=== PATIENT | female | born 1950 | race Native Hawaiian/Other Pacific Islander ===

== ENCOUNTER 2017-04-26 11:27 | Outpatient (CLI) | payer OTHER | END 2017-04-26 19:11 | disposition home or self-care (01) | LOC: RAD 11:27 | DX: R05 Cough (principal) ==

== ENCOUNTER 2017-05-13 12:06 | Observation (INO) | payer OTHER ==
[~2017-05-13] VITALS: Ht 172.7 cm; Wt 117.9 kg
[2017-05-13 15:09] VITALS: BP 173/76; TEMP 98.9; Ht 172.7 cm; Wt 117.9 kg
[2017-05-13 15:15] LABS: PLATELET COUNT 395 K/uL (152-353)
[2017-05-13 15:31] LABS: POTASSIUM 3.7 mmol/L (3.6-5.2); SODIUM 139 mmol/L (136-145)
[2017-05-13] MEDS ORDERED: FLECAINIDE100 MG PO (18:50)
[2017-05-13] MEDS ORDERED: LOSA50TA PO (18:50)
[2017-05-13] MEDS ORDERED: LORADAMED10 MG PO (18:51)
[2017-05-13] MEDS ORDERED: SERT50TA PO (18:51)
[2017-05-13] MEDS ORDERED: KLOR-CON M1010 MEQ PO (18:51)
[2017-05-13] MEDS ORDERED: ROBAXIN-750750 MG PO (18:52)
[2017-05-13] MEDS ORDERED: TESSALON PER100 MG OR (18:54)
[2017-05-13] MEDS ORDERED: ALBUTEROL0.083 % IN (18:55)
[2017-05-13] MEDS ORDERED: BETAMETH DIP0.052 TOP (18:56)
[2017-05-13] MEDS ORDERED: LEVAQUIN500 MG OR (18:59)
[2017-05-13] MEDS ORDERED: PROMSYP53 PO (19:01)
[2017-05-13 20:00] VITALS: BP 175/90; TEMP 98.4
[2017-05-14] VITALS: BP 173/86; TEMP 98.7
[2017-05-14 04:00] VITALS: BP 168/81; TEMP 97.6
[2017-05-14 05:07] LABS: PLATELET COUNT 375 K/uL (152-353)
[2017-05-14 05:14] LABS: POTASSIUM 3.6 mmol/L (3.6-5.2); SODIUM 139 mmol/L (136-145)
[2017-05-14 08:00] VITALS: BP 149/79; TEMP 98.3
[2017-05-14 12:00] VITALS: BP 141/75; TEMP 97.8
[2017-05-14 16:00] VITALS: BP 149/76; TEMP 98.3
[2017-05-14 20:00] VITALS: BP 158/87; TEMP 98
[2017-05-15 00:26] VITALS: BP 138/58; TEMP 98
[2017-05-15 04:00] VITALS: BP 140/71; TEMP 98
[2017-05-15 07:54] LABS: PLATELET COUNT 399 K/uL (152-353)
[2017-05-15 08:00] VITALS: BP 152/79; TEMP 97.7
[2017-05-15 08:25] LABS: POTASSIUM 3.6 mmol/L (3.6-5.2); SODIUM 139 mmol/L (136-145)
[2017-05-15 12:00] VITALS: BP 128/55; TEMP 97.7
--- NOTE | 2017-05-15 15:29 | NUR ---
DC INSTRUCTIONS GIVEN TO PT AND FAMILY. RX GIVEN TO PT. INSTRUCTED PT TO FOLLOW UP WITH PCP IN 3-5 DAYS. PT VERBALIZED UNDERSTANDING. IV DC'D WITH CANNULA INTACT, SITE CARE PROVIDED. NAD NOTED.
--- NOTE | 2017-05-15 15:38 | NUR ---
PT LEFT VIA WC AT THIS TIME
== END 2017-05-15 15:30 | disposition home or self-care (01) ==
LOC: MED/SURG 12:06
PROVIDERS: Internal Medicine; ADMIT Nurse Practitioner
DX: J06.9 Acute upper respiratory infection, unspecified (principal); R06.02 Shortness of breath
CPT/HCPCS: 36415; 36600; 80048; 80053; 82805; 85027; 87040; 93005; 94640; 94664; 94760; 96365; 96366; 96367; 96374; 99220; G0378; G0379; J2920; J2930

== ENCOUNTER 2017-06-17 19:11 | Emergency (ER) | payer OTHER ==
[~2017-06-17] VITALS: Ht 172.7 cm; Wt 122.5 kg
[~2017-06-17 19:11] MED LIST: ALBUTEROL0.083 % IN; BETAMETH DIP0.052 TOP; FLECAINIDE100 MG PO; KLOR-CON M1010 MEQ PO; LEVAQUIN500 MG OR; LORADAMED10 MG PO; LOSA50TA PO; PROMSYP53 PO; ROBAXIN-750750 MG PO; SERT50TA PO; TESSALON PER100 MG OR
[2017-06-17 21:30] VITALS: BP 168/88; TEMP 98.9
== END 2017-06-17 21:31 | disposition home or self-care (01) ==
LOC: ED 19:11
DX: R21 Rash and other nonspecific skin eruption (principal); L03.116 Cellulitis of left lower limb; L03.115 Cellulitis of right lower limb
CPT/HCPCS: 99283

== ENCOUNTER 2017-07-14 09:42 | Outpatient (CLI) | payer OTHER | END 2017-07-14 10:45 | disposition home or self-care (01) | LOC: LABW 09:42 | PROVIDERS: Internal Medicine Cardiovascular Disease | DX: E78.4 Other hyperlipidemia (principal) | CPT/HCPCS: 36415; 80061 ==

== ENCOUNTER 2017-08-10 13:08 | Outpatient (CLI) | payer OTHER | END 2017-08-10 14:10 | disposition home or self-care (01) | LOC: RESP 13:08 | DX: R06.09 Other forms of dyspnea (principal) | CPT/HCPCS: 94640; 94664 ==

== ENCOUNTER 2018-01-24 11:25 | Outpatient (CLI) | payer OTHER | END 2018-01-24 18:18 | disposition home or self-care (01) | LOC: MAMMO 11:25 | DX: Z85.3 Personal history of malignant neoplasm of breast (principal); Z90.11 Acquired absence of right breast and nipple; N64.4 Mastodynia ==

== ENCOUNTER 2018-02-02 14:15 | Outpatient (CLI) | payer OTHER | END 2018-02-02 19:25 | disposition home or self-care (01) | LOC: LABW 14:15 | DX: K64.0 First degree hemorrhoids (principal) | CPT/HCPCS: 82272 ==

== ENCOUNTER 2018-02-18 15:25 | Emergency (ER) | payer OTHER ==
[~2018-02-18] VITALS: Ht 172.7 cm; Wt 120.2 kg
[2018-02-18 15:35] VITALS: TEMP 98.8
[2018-02-18 17:00] VITALS: BP 142/82
== END 2018-02-18 17:00 | disposition home or self-care (01) ==
LOC: ED 15:25
DX: S62.396A Other fracture of fifth metacarpal bone, right hand, initial encounter for closed fracture (principal); S63.591A Other specified sprain of right wrist, initial encounter; W20.8XXA Other cause of strike by thrown, projected or falling object, initial encounter; Y92.098 Other place in other non-institutional residence as the place of occurrence of the external cause
CPT/HCPCS: 99283

== ENCOUNTER 2018-08-16 11:27 | Outpatient (CLI) | payer OTHER | END 2018-08-16 21:01 | disposition home or self-care (01) | LOC: MRI 11:27 | DX: M54.5 Low back pain (principal) ==

== ENCOUNTER 2019-02-28 09:53 | Outpatient (CLI) | payer OTHER | END 2019-02-28 20:40 | disposition home or self-care (01) | LOC: MAMMO 09:53 | DX: Z90.11 Acquired absence of right breast and nipple (principal); Z85.3 Personal history of malignant neoplasm of breast ==

== ENCOUNTER 2019-04-03 14:24 | Outpatient (CLI) | payer OTHER | END 2019-04-03 21:19 | disposition home or self-care (01) | LOC: RAD 14:24 | DX: R06.09 Other forms of dyspnea (principal) ==

== ENCOUNTER 2019-09-24 09:54 | Outpatient (CLI) | payer OTHER | END 2019-09-24 19:14 | disposition home or self-care (01) | LOC: RESP 09:54 | DX: R06.09 Other forms of dyspnea (principal) ==

== ENCOUNTER 2019-11-05 09:51 | Outpatient (CLI) | payer OTHER | END 2019-11-05 23:07 | disposition home or self-care (01) | LOC: EDBD 09:51 → LABW 09:51 | DX: I48.91 Unspecified atrial fibrillation (principal); R06.02 Shortness of breath | CPT/HCPCS: 36415; 83880 ==

== ENCOUNTER 2020-02-13 08:09 | Outpatient (CLI) | payer OTHER ==
[~2020-02-13] VITALS: Ht 175.3 cm; Wt 121.6 kg
== END 2020-02-13 19:22 | disposition home or self-care (01) ==
LOC: NM 08:09
DX: R07.89 Other chest pain (principal)
CPT/HCPCS: A9500; J2785

== ENCOUNTER 2020-08-17 16:08 | Emergency (ER) | payer OTHER ==
[~2020-08-17] VITALS: Ht 172.7 cm; Wt 121.6 kg
[2020-08-17 16:20] VITALS: TEMP 98
[2020-08-17 18:17] VITALS: BP 188/82
== END 2020-08-17 18:17 | disposition home or self-care (01) ==
LOC: ED 16:08
DX: S06.0X0A Concussion without loss of consciousness, initial encounter (principal); W01.198A Fall on same level from slipping, tripping and stumbling with subsequent striking against other object, initial encounter; Y92.098 Other place in other non-institutional residence as the place of occurrence of the external cause
CPT/HCPCS: 99283

== ENCOUNTER 2020-10-10 08:54 | Outpatient (CLI) | payer OTHER | END 2020-10-10 19:28 | disposition home or self-care (01) | LOC: LABW 08:54 | PROVIDERS: ATTEND Internal Medicine Cardiovascular Disease | DX: Z79.899 Other long term (current) drug therapy (principal); R06.09 Other forms of dyspnea | CPT/HCPCS: 36415; 80048; 80061; 82306; 82607; 83880 ==

== ENCOUNTER 2020-11-19 13:56 | Outpatient (CLI) | payer OTHER | END 2020-11-19 20:26 | disposition home or self-care (01) | LOC: MAMMO 13:56 | PROVIDERS: ATTEND Nurse Practitioner | DX: N64.4 Mastodynia (principal) | CPT/HCPCS: G0279 ==

== ENCOUNTER 2021-02-02 09:27 | Outpatient (CLI) | payer OTHER | END 2021-02-02 22:11 | disposition home or self-care (01) | LOC: LABW 09:27 | PROVIDERS: ATTEND Internal Medicine Cardiovascular Disease | DX: E78.49 Other hyperlipidemia (principal) | CPT/HCPCS: 36415; 80061 ==

== ENCOUNTER 2021-07-02 09:25 | Outpatient (CLI) | payer OTHER ==
[2021-07-02 09:55] LABS: POTASSIUM 3.6 mmol/L (3.6-5.2)
[2021-07-02 10:18] LABS: PLATELET COUNT 301 K/uL (152-353)
== END 2021-07-02 22:35 | disposition home or self-care (01) ==
LOC: LABW 09:25
PROVIDERS: ATTEND Internal Medicine Cardiovascular Disease
DX: Z79.899 Other long term (current) drug therapy (principal)
CPT/HCPCS: 36415; 80053; 80061; 85027

== ENCOUNTER 2021-11-23 11:36 | Outpatient (CLI) | payer OTHER | END 2021-11-23 18:53 | disposition home or self-care (01) | LOC: MAMMO 11:36 | PROVIDERS: ATTEND Registered Nurse | DX: Z12.31 Encounter for screening mammogram for malignant neoplasm of breast (principal); N64.59 Other signs and symptoms in breast ==

== ENCOUNTER 2021-11-26 12:07 | Outpatient (CLI) | payer OTHER | END 2021-11-26 19:15 | disposition home or self-care (01) | LOC: RAD 12:07 | PROVIDERS: ATTEND Registered Nurse | DX: R09.89 Other specified symptoms and signs involving the circulatory and respiratory systems (principal) ==

== ENCOUNTER 2021-12-28 14:20 | Outpatient (CLI) | payer OTHER | END 2021-12-28 19:04 | disposition home or self-care (01) | LOC: MRI 14:20 | PROVIDERS: ATTEND Nurse Practitioner Family | DX: M25.511 Pain in right shoulder (principal) ==

== ENCOUNTER 2022-03-12 09:29 | Outpatient (CLI) | payer OTHER ==
[2022-03-12 10:16] LABS: POTASSIUM 4.1 mmol/L (3.6-5.2)
== END 2022-03-12 20:27 | disposition home or self-care (01) ==
LOC: LABW 09:29
PROVIDERS: ATTEND Internal Medicine Cardiovascular Disease
DX: Z79.899 Other long term (current) drug therapy (principal)
CPT/HCPCS: 36415; 80048

== ENCOUNTER 2022-05-26 14:17 | Outpatient (CLI) | payer OTHER | END 2022-05-26 19:04 | disposition home or self-care (01) | LOC: RAD 14:17 | PROVIDERS: ATTEND Nurse Practitioner Family | DX: R06.09 Other forms of dyspnea (principal) ==

== ENCOUNTER 2022-06-25 09:36 | Outpatient (CLI) | payer OTHER ==
[2022-06-25 11:22] LABS: POTASSIUM 3.5 mmol/L (3.6-5.2)
== END 2022-06-25 21:55 | disposition home or self-care (01) ==
LOC: EDBD → LABW 09:36
PROVIDERS: ATTEND Physician Assistant
DX: Z79.899 Other long term (current) drug therapy (principal); R06.09 Other forms of dyspnea
CPT/HCPCS: 36415; 80048; 83880; 84443

== ENCOUNTER 2022-08-16 10:00 | Outpatient (CLI) | payer OTHER | END 2022-08-16 20:04 | disposition home or self-care (01) | LOC: CT 10:00 | PROVIDERS: ATTEND Internal Medicine Sleep Medicine | DX: J84.89 Other specified interstitial pulmonary diseases (principal) ==

== ENCOUNTER 2023-06-16 09:52 | Outpatient (CLI) | payer OTHER | END 2023-06-16 19:48 | disposition home or self-care (01) | LOC: CT 09:52 | PROVIDERS: ATTEND Nurse Practitioner Family | DX: R91.1 Solitary pulmonary nodule (principal) ==

== ENCOUNTER 2023-07-04 10:42 | Outpatient (CLI) | payer OTHER | END 2023-07-04 21:24 | disposition home or self-care (01) | LOC: RAD 10:42 | PROVIDERS: ATTEND Nurse Practitioner Family | DX: J16.8 Pneumonia due to other specified infectious organisms (principal); R09.89 Other specified symptoms and signs involving the circulatory and respiratory systems ==